=== PATIENT | female | born 1985 | race African-American/Black ===

== ENCOUNTER 2018-09-09 08:17 | Emergency (ER) | payer MEDICAID, OTHER ==
[~2018-09-09] VITALS: Ht 167.6 cm; Wt 81.6 kg
[2018-09-09 08:29] VITALS: BP 113/74
== END 2018-09-09 09:10 | disposition home or self-care (01) ==
LOC: ER 08:21
DX: N76.0 Acute vaginitis (principal); N39.0 Urinary tract infection, site not specified
CPT/HCPCS: 81002; 81025

== ENCOUNTER 2018-09-10 14:13 | Emergency (ER) | payer MEDICAID ==
[~2018-09-10] VITALS: Ht 167.6 cm; Wt 81.6 kg
[2018-09-10 14:23] VITALS: BP 123/78
== END 2018-09-10 15:00 | disposition left against medical advice (07) ==
LOC: ER 14:16
DX: R11.2 Nausea with vomiting, unspecified (principal); Z53.21 Procedure and treatment not carried out due to patient leaving prior to being seen by health care provider